=== PATIENT | male | born 1955 | race Caucasian/White ===

== ENCOUNTER 2022-11-20 19:03 | Emergency (ER) | payer MEDICARE ==
[~2022-11-20] VITALS: Ht 175.3 cm; Wt 87.8 kg
[2022-11-20 19:05] VITALS: TEMP 99.5
[2022-11-20] MEDS ORDERED: METF-839 PO (19:28)
[2022-11-20] MEDS ORDERED: FOLI800C PO (19:28)
[2022-11-20] MEDS ORDERED: INSUH10VL SC (19:28)
[2022-11-20] MEDS ORDERED: BACL1TAB8 PO (19:28)
[2022-11-20] MEDS ORDERED: ASPI-264 PO (19:28)
[2022-11-20] MEDS ORDERED: HUMI40KI2 SC (19:28)
[2022-11-20] MEDS ORDERED: METH2.5T48 PO (19:28)
[2022-11-20] MEDS ORDERED: FENO160T10 PO (19:28)
[2022-11-20] MEDS ORDERED: JARD1TAB3 PO (19:28)
[2022-11-20] MEDS ORDERED: MELO15TA28 PO (19:28)
[2022-11-20] MEDS ORDERED: TOUJ300I2 SC (19:28)
[2022-11-20 20:13] LABS: BASO # 0.1 10^3/uL (0.0-0.2); BASO % 0.7 % (0.0-1.0); EOS # 0.2 10^3/uL (0.0-0.5); EOS % 1.4 % (0.0-3.0); HEMATOCRIT 55.3 % (42.0-52.0); HEMOGLOBIN 18.7 g/dl (13.5-17.5); LYMPH # 1.3 10^3/uL (1.5-5.0); LYMPH % 9.8 % (24.0-44.0); MEAN CORPUSCULAR HEMOGLOBIN 32.1 pg (27.0-33.0); MEAN CORPUSCULAR HGB CONC 33.8 g/dl (32.0-36.5); MONO # 1.2 10^3/uL (0.0-0.8); NEUTROPHILS # 10.7 10^3/uL (1.5-8.5); NEUTROPHILS % 78.6 % (36.0-66.0); PLATELET COUNT, AUTOMATED 289 10^3/uL (150-450); RED BLOOD COUNT 5.82 10^6/uL (4.30-6.10); WHITE BLOOD COUNT 13.6 10^3/uL (4.0-10.0)
[2022-11-20 20:28] LABS: ERYTHROCYTE SEDIMENTATION RATE 20 mm/hr (0-20)
[2022-11-20 20:37] LABS: BLOOD UREA NITROGEN 26 MG/DL (9-23); CALCIUM LEVEL 10.4 MG/DL (8.3-10.6); CARBON DIOXIDE LEVEL 25 MMOL/L (20-31); CHLORIDE LEVEL 101 MMOL/L (98-107); CREATININE FOR GFR 1.13 MG/DL (0.70-1.30); GLOMERULAR FILTRATION RATE > 60.0 (>49); GLUCOSE, FASTING 141 MG/DL (74-106); POTASSIUM SERUM 4.7 MMOL/L (3.5-5.1); SODIUM LEVEL 140 MMOL/L (136-145)
[2022-11-20] MEDS ORDERED: predniSONE 20 MG TAB PO ONE (22:40)
[2022-11-20] MEDS ORDERED: CLINDAMYCIN 150MG CAPSULE PO ONE (22:40)
[2022-11-20] MEDS ORDERED: CLEO300C2 PO (22:46)
[2022-11-20 23:21] VITALS: BP 151/68; O2SAT 98
== END 2022-11-20 23:24 | disposition home or self-care (01) ==
LOC: M ED 19:03
DX: J02.0 Streptococcal pharyngitis (principal); J11.1 Influenza due to unidentified influenza virus with other respiratory manifestations; E11.9 Type 2 diabetes mellitus without complications; Z79.84 Long term (current) use of oral hypoglycemic drugs; Z79.899 Other long term (current) drug therapy
CPT/HCPCS: 36415; 80048; 85025; 85652; 86140; 99283; J7512

== ENCOUNTER → 2023-11-05 | Outpatient (CLI) | payer MEDICARE ==
[~2023-11-05] MED LIST: ASPI-264 PO; BACL1TAB8 PO; CLEO300C2 PO; FENO160T10 PO; FOLI800C PO; HUMI40KI2 SC; INSUH10VL SC; JARD1TAB3 PO; MELO15TA28 PO; METF-839 PO; METH2.5T48 PO; TOUJ300I2 SC
[2023-11-05 16:55] LABS: APPEARANCE, URINE CLEAR (CLEAR); BACTERIA, URINE AUTO NEGATIVE (NEGATIVE); BILIRUBIN, URINE AUTO NEGATIVE (NEGATIVE); BLOOD, URINE BLOOD NEGATIVE (NEGATIVE); COLOR, URINE YELLOW (YELLOW); GLUCOSE, URINE (UA) AUTO 3+ mg/dL (NEGATIVE); KETONE, URINE AUTO TRACE mg/dL (NEGATIVE); LEUKOCYTE ESTERASE, URINE AUTO NEGATIVE (NEGATIVE); MUCUS, URINE SMALL (NEGATIVE); NITRITE, URINE AUTO NEGATIVE (NEGATIVE); PROTEIN, URINE AUTO NEGATIVE (NEGATIVE); RBC, URINE AUTO 0 /HPF (0-3); SPECIFIC GRAVITY URINE AUTO 1.029 (1.002-1.035); SQUAMOUS EPITHELIAL CELL UR AU 0 /HPF (0-6); UROBILINOGEN, URINE AUTO 0.2 mg/dL (0.0-2.0); WBC, URINE AUTO 1 /HPF (0-3)
== END ==
LOC: M RAD 13:53
PROVIDERS: ATTEND Physician Assistant
DX: N39.0 Urinary tract infection, site not specified (principal)

== ENCOUNTER → 2023-11-19 | Outpatient (CLI) | payer MEDICARE ==
[~2023-11-19] MED LIST changes: +ATOR1TAB21 PO; +CO Q10CA PO; +FISH1CAP26 FT; +FLOM0.4C39 PO; +KETO10TAB PO; +MULT-90 PO
== END ==
LOC: M RAD 10:35
PROVIDERS: ATTEND Physician Assistant
DX: Z01.818 Encounter for other preprocedural examination (principal)

== ENCOUNTER 2023-11-26 07:59 | Day surgery (SDC) | payer MEDICARE ==
[~2023-11-26] VITALS: Ht 175.3 cm; Wt 91.6 kg
[~2023-11-26 07:59] MED LIST changes: -FLOM0.4C39 PO
[2023-11-26] MEDS ORDERED: LR 1,000 ML IV SCH (08:25)
[2023-11-26] MEDS ORDERED: LIDOCAINE 2% 100MG/5ML SDV (FOR ANES.) As Ordered ONE (09:45)
[2023-11-26] MEDS ORDERED: ONDANSETRON 4MG 2ML VIAL As Ordered ONE (09:45)
[2023-11-26] MEDS ORDERED: propofoL 200 MG/20 ML VIAL As Ordered ONE (09:45)
[2023-11-26] MEDS ORDERED: fentaNYL 100 MCG/2 ML INJECTION As Ordered ONE (09:46)
[2023-11-26] MEDS ORDERED: MIDAZOLAM INJ 2MG/2ML VIAL As Ordered ONE (09:46)
[2023-11-26] MEDS: ceFAZolin SOD 2 GM in IV 1 EA IV ONE (12:09)
[2023-11-26] MEDS ORDERED: ACETAMINOPHEN 1000MG 100ML IV BAG As Ordered ONE (12:10)
[2023-11-26] MEDS ORDERED: LACRILUBE (AKWA TEARS) OPHTH OINT 3.5GM As Ordered ONE (12:10)
[2023-11-26] MEDS: ISOVUE-300 61% 100ML VIAL As Ordered ONE (12:17)
[2023-11-26] MEDS ORDERED: METOCLOPRAMIDE INJ 10MG/2ML VIAL As Ordered ONE (12:29)
[2023-11-26] MEDS ORDERED: fentaNYL 100 MCG/2 ML INJECTION IV PRN (13:00)
[2023-11-26] MEDS ORDERED: oxyCODONE 5MG TAB PO PRN (13:00)
[2023-11-26] MEDS ORDERED: ONDANSETRON 4MG 2ML VIAL IV PRN (13:00)
[2023-11-26] MEDS ORDERED: PERCOCET 5MG/325MG TAB PO PRN (13:20)
[2023-11-26 14:32] VITALS: BP 154/81; TEMP 97.9; O2SAT 96
[2023-11-26] MEDS ORDERED: FLOM0.4C39 PO (15:05)
== END 2023-11-26 14:42 | disposition home or self-care (01) ==
LOC: M SDC 07:59
PROVIDERS: ATTEND Urology
DX: N13.2 Hydronephrosis with renal and ureteral calculous obstruction (principal); E11.9 Type 2 diabetes mellitus without complications; G47.30 Sleep apnea, unspecified; L40.50 Arthropathic psoriasis, unspecified; Z79.899 Other long term (current) drug therapy; Z79.82 Long term (current) use of aspirin; Z79.84 Long term (current) use of oral hypoglycemic drugs; Z79.4 Long term (current) use of insulin; Z79.620 Long term (current) use of immunosuppressive biologic; Z87.442 Personal history of urinary calculi; Z90.89 Acquired absence of other organs
CPT/HCPCS: 52356; 76000; 82365; C2617; J0131; J0690; J1100; J2250; J2405; J2765; J3010; Q9967